=== PATIENT | male | born 1960 | race Caucasian/White ===

== ENCOUNTER 2019-01-18 09:06 | Emergency (ER) | payer BC ==
[~2019-01-18] VITALS: Ht 180.3 cm; Wt 156.5 kg
[2019-01-18 09:12] VITALS: BP_SYST 161
--- NOTE | 2019-01-18 09:20 | NUR ---
Patient to ER bed 8 to gown for evaluation. Side rails up. Report given to Guera JUAREZ.
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
--- NOTE | 2019-01-18 09:31 | NUR ---
ER Dr. Saini at bedside examining patient.
[2019-01-18] MEDS ORDERED: traMADol HCL HCL 50 MG TABLET (ULTRAM) PO ONE (09:45)
--- NOTE | 2019-01-18 10:45 | NUR ---
Patient to radiology with staff via wheel chair
--- NOTE | 2019-01-18 10:53 | NUR ---
Patient to ER bed 8 from radiology
[2019-01-18 11:35] VITALS: BP_SYST 141
--- NOTE | 2019-01-18 11:35 | NUR ---
Patient given written and verbal discharge instructions and verbalizes understanding. ER MD discussed with patient the results and treatment provided. Patient in stable condition. ID arm band removed. Rx of [place] given. Patient educated on pain management and to follow up with PMD. Pain Scale 2/10 tolerable for patient. Opportunity for questions provided and answered. Medication side effect fact sheet provided.
== END 2019-01-18 11:35 | disposition home or self-care (01) ==
LOC: SED 09:06
DX: S22.32XA Fracture of one rib, left side, initial encounter for closed fracture (principal); R03.0 Elevated blood-pressure reading, without diagnosis of hypertension; V93.33XA Fall on board other powered watercraft, initial encounter; Y93.89 Activity, other specified; Y92.89 Other specified places as the place of occurrence of the external cause; Y99.8 Other external cause status
CPT/HCPCS: 99284